=== PATIENT | male | born 2000 | race Caucasian/White ===

== ENCOUNTER 2019-05-11 10:46 | Emergency (ER) | payer SELFPAY | END 2019-05-11 11:00 | disposition left against medical advice (07) | LOC: MW.ED 10:46 | DX: Z53.21 Procedure and treatment not carried out due to patient leaving prior to being seen by health care provider (principal) ==

== ENCOUNTER 2019-12-18 05:44 | Emergency (ER) | payer OTHER ==
[2019-12-18] MEDS ORDERED: Diphtheria,Pertussis(Acell),Tetanus Vaccine 0.5 ML Syringe IM ONE (06:00)
--- NOTE | 2019-12-18 06:04 | EDM.PDOC ---
ED HPI GENERAL MEDICAL PROBLEM - General Chief Complaint: Lower Extremity Injury/Pain Stated Complaint: LEFT FOOT IS SWOLLEN Time Seen by Provider: 12/18/19 05:46 - History of Present Illness INITIAL COMMENTS - FREE TEXT/NARRATIVE: Otherwise well 19-year-old male presenting with 3 out of 10 left foot pain after stepping on a nail. Patient reports that about 12 hours ago he stepped on a nail at work and went through the sole of his boot in his sock and struck him in the plantar aspect of his foot at the level of the head of the first metatarsal. He reports that this is happened before but the pain is persisted longer than normal so he presents for evaluation of the pain worsens with ambulation it worsens with range of motion of the toes. No fevers no chills no pain in the calf. L foot Pain Score (Numeric/FACES): 3 - Related Data Allergies Allergy/AdvReac Type Severity Reaction Status Date / Time No Known Allergies Allergy Verified 12/18/19 06:02 Home Meds: Home Meds levoFLOXacin [Levaquin] 750 mg PO DAILY 5 Days #5 tablet 12/18/19 [Rx] ED ROS GENERAL - Review of Systems Review Of Systems: See Below Free Text/Narrative/Comment: General: No fever. Skin: Per HPI Musculoskeletal: Per HPI ED EXAM, GENERAL - Physical Exam Exam: See Below Free Text/Narrative:: General Appearance: No acute distress, appears comfortable Skin: No rash HEENT: Normocephalic/atraumatic, sclera anicteric, mucous membranes moist Neck: Normal range of motion Musculoskeletal: 2+ left DP pulse, digits neurovascularly intact, small puncture wound visible on the plantar aspect of the foot essentially in the center of the head of the first metatarsal no MTP joint erythema is noted some pain with range of motion of the toes but range of motion of the toes and the ankle joint is full no swelling no erythema no active drainage or bleeding some tenderness over the dorsum of the foot as well. No signs of retained foreign body on initial exam Neurologic: Awake, alert, no obvious deficits, moving all extremities Psychiatric: Appropriate, cooperative Course - Vital Signs Last Recorded V/S: Last Vital Signs Temp 98.0 F 12/18/19 05:59 Pulse 91 12/18/19 05:59 Resp 18 12/18/19 05:59 BP 130/73 12/18/19 05:59 Pulse Ox 97 12/18/19 05:59 - Orders/Labs/Meds Orders: Active Orders 24 hr Category Date Time Status Vaccines to be Administered [RC] PER UNIT ROUTINE Care 12/18/19 06:00 Active Foot 2V Lt [CR] Stat Exams 12/18/19 05:59 Taken Meds: Medications Discontinued Medications Generic Name Dose Route Start Last Admin Trade Name Freq PRN Reason Stop Dose Admin Diphtheria/Tetanus/Acell Pertussis 0.5 ml 12/18/19 06:00 12/18/19 06:12 Adacel IM 12/18/19 06:01 0.5 ml .ONCE ONE Administration Departure - Departure Time of Disposition: 06:39 Disposition: Home, Self-Care 01 Condition: Good Clinical Impression: Puncture wound of foot without foreign body - Discharge Information *PRESCRIPTION DRUG MONITORING PROGRAM REVIEWED*: Not Applicable *COPY OF PRESCRIPTION DRUG MONITORING REPORT IN PATIENT NADIA: Not Applicable Prescriptions: levoFLOXacin [Levaquin] 750 mg PO DAILY 5 Days #5 tablet Instructions: Puncture Wound, Wound Care, Adult Referrals: [facility] [Outside] Forms: ED Department Discharge Additional Instructions: Please keep an eye on your wound if you notice swelling worsening redness or any drainage please return to the ER immediately. The following information is given to patients seen in the emergency department who are being discharged to home. This information is to outline your options for follow-up care. We provide all patients seen in our emergency department with a follow-up referral. The need for follow-up, as well as the timing and circumstances, are variable depending upon the specifics of your emergency department visit. If you don't have a primary care physician on staff, we will provide you with a referral. We always advise you to contact your personal physician following an emergency department visit to inform them of the circumstance of the visit and for follow-up with them and/or the need for any referrals to a consulting specialist. The emergency department will also refer you to a specialist when appropriate. This referral assures that you have the opportunity for follow-up care with a specialist. All of these measure are taken in an effort to provide you with optimal care, which includes your follow-up. Under all circumstances we always encourage you to contact your private physician who remains a resource for coordinating your care. When calling for follow-up care, please make the office aware that this follow-up is from your recent emergency room visit. If for any reason you are refused follow-up, please contact the [facility] Emergency Department at and asked to speak to the emergency department charge nurse. Sepsis Event Note (ED) - Focused Exam Vital Signs: Vital Signs Temp Pulse Resp BP Pulse Ox 12/18/19 05:59 98.0 F 91 18 130/73 97 - My Orders Last 24 Hours: My Active Orders 12/18/19 05:59 Foot 2V Lt [CR] Stat 12/18/19 06:00 Vaccines to be Administered [RC] PER UNIT ROUTINE - Assessment/Plan Last 24 Hours: My Active Orders 12/18/19 05:59 Foot 2V Lt [CR] Stat 12/18/19 06:00 Vaccines to be Administered [RC] PER UNIT ROUTINE Assessment:: 19-year-old male presents with puncture wound as described above. No signs of active infection at this time. Risk of fracture low but x-ray ordered to exclude this as well as exclude metallic foreign body. Patient will need antibiotic coverage he cannot recall his last tetanus shot so this will be updated as well. XR does not demonstrate any retained FB. Will prophylactically cover with levaquin to include pseudomonas coverage. Return precautions discussed and understood.
--- NOTE | 2019-12-18 07:17 | CR ---
Indication: Evaluate for foreign body. Technique: Left foot 2 views. Comparison: None. Findings: No acute fracture or dislocation. Small well corticated ossicles adjacent to the lateral malleolus are likely due to prior trauma. Os trigonum. Joint spaces are well preserved. No radiopaque foreign body is identified. Soft tissues are unremarkable. Impression: 1. No acute findings. 2. No radiopaque foreign body is identified. Dictated by Debora Flor MD @ Dec 18 2019 7:13AM Signed by Dr. Debora Flor @ Dec 18 2019 7:16AM
== END 2019-12-18 06:50 | disposition home or self-care (01) ==
LOC: MW.ED 05:44
DX: S91.332A Puncture wound without foreign body, left foot, initial encounter (principal); Z23 Encounter for immunization; W22.8XXA Striking against or struck by other objects, initial encounter; Y92.89 Other specified places as the place of occurrence of the external cause; Y99.0 Civilian activity done for income or pay
CPT/HCPCS: 73620-26-LT; 73620-LT; 90471; 90715; 99283-25

== ENCOUNTER 2023-12-10 14:36 | Emergency (ER) | payer OTHER ==
[2023-12-10] MEDS: Lidocaine 1% 5 ML VIAL INJECT ONE (15:54)
== END 2023-12-10 16:43 | disposition home or self-care (01) ==
LOC: MW.ED 14:36
DX: S61.211A Laceration without foreign body of left index finger without damage to nail, initial encounter (principal); S61.213A Laceration without foreign body of left middle finger without damage to nail, initial encounter; F17.210 Nicotine dependence, cigarettes, uncomplicated; Z79.899 Other long term (current) drug therapy; W27.0XXA Contact with workbench tool, initial encounter
CPT/HCPCS: 12002; 99282; J3490